=== PATIENT | male | born 1995 | race African-American/Black ===

== ENCOUNTER 2019-08-03 | Emergency (ER) | payer SELFPAY ==
--- NOTE | 2019-08-03 01:19 | ER ---
Nurse's Notes [facility] Name: Choco Gaines Age: 24 yrs Sex: Male : 1995 Arrival Date: 08/03/2019 Time: 00:26 Bed 8 Private MD: Diagnosis: Lateral epicondylitis, left elbow Presentation: 08/03 00:30 Presenting complaint: Patient states: About a day ago after work I started having jb4 severe pain in my left elbow. 00:30 Transition of care: patient was not received from another setting of care. Onset of jb4 symptoms was August 03, 2019. Risk Assessment: Do you want to hurt yourself or someone else? Patient reports no desire to harm self or others. Initial Sepsis Screen: Does the patient meet any 2 criteria? No. Patient's initial sepsis screen is negative. Does the patient have a suspected source of infection? No. Patient's initial sepsis screen is negative. Care prior to arrival: None. 00:30 Method Of Arrival: Ambulatory jb4 00:30 Acuity: ROX 5 jb4 Historical: - Allergies: 00:30 No Known Allergies; jb4 - Home Meds: 00:30 None [Active]; jb4 - PMHx: 00:30 None; jb4 - PSHx: 00:30 None; jb4 - Immunization history:: Adult Immunizations. - Coronavirus screen:: The patient has NOT traveled to [place] in the past 14 days. Proceed with normal triage process as indicated. The patient has NOT had contact with known/suspected case of Coronavirus? Proceed with normal triage procedures. - Family history:: not pertinent. - Social history:: Smoking status: unknown. - Hospitalizations: : No recent hospitalization is reported. - Ebola Screening: : No symptoms or risks identified at this time. Screenin:00 Abuse screen: Denies threats or abuse. Nutritional screening: No deficits noted. jb4 Tuberculosis screening: No symptoms or risk factors identified. Fall Risk None identified. Assessment: 01:00 General: Appears in no apparent distress. uncomfortable, Behavior is calm, cooperative, jb4 appropriate for age. Pain: Complains of pain in left elbow Pain does not radiate. Pain currently is 8 out of 10 on a pain scale. Quality of pain is described as throbbing. Neuro: Level of Consciousness is awake, alert, obeys commands, Oriented to person, place, time, situation. Cardiovascular: Patient's skin is warm and dry. Respiratory: Airway is patent Respiratory effort is even, unlabored, Respiratory pattern is regular, symmetrical. GI: No signs and/or symptoms were reported involving the gastrointestinal system. : No signs and/or symptoms were reported regarding the genitourinary system. EENT: No signs and/or symptoms were reported regarding the EENT system. Derm: Skin is intact, Skin is pink, warm \T\ dry. Musculoskeletal: Circulation, motion, and sensation intact. Range of motion: intact in all extremities. Vital Signs: 00:30 BP 150 / 94; Pulse 90; Resp 16; Temp 98.0(O); Pulse Ox 98% on R/A; Weight 107.95 kg jb4 (R); Height 6 ft. 0 in. (182.88 cm) (R); Pain 8/10; 00:30 Body Mass Index 32.28 (107.95 kg, 182.88 cm) jb4 ED Course: 00:26 Patient arrived in ED. cl3 00:29 Mu Mckeon MD is Attending Physician. rn 00:30 Arm band placed on right wrist. jb4 00:55 Jarrod Barajas, RN is Primary Nurse. jb4 00:55 Triage completed. jb4 01:00 Patient has correct armband on for positive identification. Bed in low position. Call jb4 light in reach. Side rails up X 1. Pulse ox on. NIBP on. 01:00 No provider procedures requiring assistance completed. Patient did not have IV access jb4 during this emergency room visit. Administered Medications: No medications were administered Outcome: 00:49 Discharge ordered by . rn 01:00 Discharged to home ambulatory, with family. jb4 01:00 Condition: stable 01:00 Discharge instructions given to patient, family, Instructed on discharge instructions, follow up and referral plans. Demonstrated understanding of instructions, follow-up care. 01:03 Patient left the ED. jb4 Signatures: Mu Mckeon MD MD rn Bryson, James RN RN Arjun Chahal cl3
--- NOTE | 2019-08-03 01:20 | EDPHYS ---
Physician Documentation [facility] Name: Choco Gaines Age: 24 yrs Sex: Male : 1995 Arrival Date: 08/03/2019 Time: 00:26 Bed 8 Private MD: ED Physician Mu Mckeon HPI: 08/03 00:46 This 24 yrs old Black Male presents to ER via Unassigned with complaints of Elbow rn Injury. 00:46 The patient or guardian complains of pain, that is acute. The complaints affect the rn left elbow. Onset: The symptoms/episode began/occurred yesterday. Modifying factors: The symptoms are alleviated by remaining still, the symptoms are aggravated by movement, lifting weight, bending arm. Severity of symptoms: At their worst the symptoms were moderate, in the emergency department the symptoms are unchanged. The patient has not experienced similar symptoms in the past. 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 Reports pain lateral elbow, not bone, worse with movement and lifting. . Historical: - Allergies: 00:30 No Known Allergies; jb4 - Home Meds: 00:30 None [Active]; jb4 - PMHx: 00:30 None; jb4 - PSHx: 00:30 None; jb4 - Immunization history:: Adult Immunizations. - Coronavirus screen:: The patient has NOT traveled to [place] in the past 14 days. Proceed with normal triage process as indicated. The patient has NOT had contact with known/suspected case of Coronavirus? Proceed with normal triage procedures. - Family history:: not pertinent. - Social history:: Smoking status: unknown. - Hospitalizations: : No recent hospitalization is reported. - Ebola Screening: : No symptoms or risks identified at this time. ROS: 00:46 Constitutional: Negative for fever, chills, and weight loss, Neck: Negative for injury, rn pain, and swelling, Cardiovascular: Negative for chest pain, palpitations, and edema, Respiratory: Negative for shortness of breath, cough, wheezing, and pleuritic chest pain, Back: Negative for injury and pain, MS/Extremity: + left elbow pain Skin: Negative for injury, rash, and discoloration, Neuro: Negative for headache, weakness, numbness, tingling, and seizure. Exam: 00:46 Constitutional: This is a well developed, well nourished patient who is awake, alert, rn and in no acute distress. Ambulatory to room without assistance. MS/ Extremity: Pulses equal, no cyanosis. Neurovascular intact. + tenderness at lateral condyle left elbow, no bony tenderness, reproducible pain with flexion and rotation. No swelling or deformity. Vital Signs: 00:30 BP 150 / 94; Pulse 90; Resp 16; Temp 98.0(O); Pulse Ox 98% on R/A; Weight 107.95 kg jb4 (R); Height 6 ft. 0 in. (182.88 cm) (R); Pain 8/10; 00:30 Body Mass Index 32.28 (107.95 kg, 182.88 cm) jb4 MDM: 00:29 Patient medically screened. rn 00:46 Differential diagnosis: tendonitis. Data reviewed: vital signs, nurses notes, and as a rn result, I will discharge patient. Counseling: I had a detailed discussion with the patient and/or guardian regarding: the historical points, exam findings, and any diagnostic results supporting the discharge/admit diagnosis, the need for outpatient follow up, to return to the emergency department if symptoms worsen or persist or if there are any questions or concerns that arise at home. Special discussion: I discussed with the patient/guardian in detail that at this point there is no indication for admission to the hospital. It is understood, however, that if the symptoms persist or worsen the patient needs to return immediately for re-evaluation. Further emergent ED testing is not indicated at this point in time. I discussed with the patient/guardian in detail the need to arrange with the PCP or specialist further outpatient testing, MRI. ED course: Recommend rest, ice, compression sleeves. . Administered Medications: No medications were administered Disposition: 08/03/19 00:49 Discharged to Home. Impression: Lateral epicondylitis, left elbow. - Condition is Stable. - Discharge Instructions: Tennis Elbow, Tendinitis. - Medication Reconciliation Form, Thank You Letter, Antibiotic Education, Prescription Opioid Use, Work release form form. - Follow up: Private Physician; When: As needed; Reason: Recheck today's complaints, Re-evaluation by your physician. - Problem is new. - Symptoms are unchanged. Signatures: Mckeon, Mu, MD MD rn Karl, Ajrrod, RN RN jb4 Corrections: (The following items were deleted from the chart) 01:03 00:49 08/03/2019 00:49 Discharged to Home. Impression: Lateral epicondylitis, left jb4 elbow. Condition is Stable. Forms are Medication Reconciliation Form, Thank You Letter, Antibiotic Education, Prescription Opioid Use. Follow up: Private Physician; When: As needed; Reason: Recheck today's complaints, Re-evaluation by your physician. Problem is new. Symptoms are unchanged. rn
== END 2019-08-03 01:03 | disposition home or self-care (01) ==
DX: M77.12 Lateral epicondylitis, left elbow (principal)
CPT/HCPCS: 99283

== ENCOUNTER 2023-05-05 16:44 | Emergency (ER) | payer SELFPAY ==
--- OUTSIDE RECORDS SUMMARY | 2023-05-05 16:46 | XMS REPORT | Continuity of Care Document ---
:1995 Author Organization [facility] t Address [address] [place] [address] [place] [id number] Care Team Providers Name Role Phone CHRETIEN_F Attending Clinician Unavailable CHRETIEN_F Admitting Clinician Unavailable Payers Payer Name Policy Type Policy Number Effective Date Expiration Date S ource Problems This patient has no known problems. Allergies, Adverse Reactions, Alerts This patient has no known allergies or adverse reactions. Medications This patient has no known medications. Procedures This patient has no known procedures. Encounters Start End Encounter Admission Attending Care Care Encounter Source Date/Time Date/Time Type Type Clinicians Facility Department ID 2021-11-19 2021-11-19 Outpatient CHRETIEN_F [facility] [id number] 11:27:00 11:27:00 [id number] 2021-11-12 2021-11-12 Outpatient CHRETIEN_F [facility] [id number] 04:12:00 04:12:00 [id number] Results This patient has no known results.
--- NOTE | 2023-05-05 17:45 | EDPHYS ---
Physician Documentation [facility] Name: Choco Gaines Age: 28 yrs Sex: Male : 1995 Arrival Date: 05/05/2023 Time: 16:44 Bed DIS1 Private MD: ED Physician Seth Weeks HPI: 05/05 16:58 This 28 yrs old Black Male presents to ER via Unassigned with complaints of Flu kb Symptoms. 16:59 Patient is a 28-year-old male with no medical history who presents for cough, kb congestion, general malaise that started 1 week ago. States his daughters have also been sick with fever. Historical: - Allergies: 17:00 No Known Allergies; aa5 - PMHx: 17:00 None; aa5 - PSHx: 17:00 None; aa5 - Immunization history:: Adult Immunizations unknown. - Social history:: Smoking status: Patient reports the use of cigarette tobacco products. ROS: 16:59 Abdomen/GI: Negative for abdominal pain, nausea, vomiting, diarrhea, and constipation, kb 16:59 Constitutional: Positive for malaise, 16:59 ENT: Positive for sinus congestion, 16:59 Respiratory: Positive for cough, 16:59 All other systems are negative, Exam: 16:59 Constitutional: This is a well developed, well nourished patient who is awake, alert, kb and in no acute distress. Head/Face: Normocephalic, atraumatic. ENT: Moist Mucous membranes Cardiovascular: Regular rate Respiratory: Respirations even and unlabored. No increased work of breathing. Talking in full sentences Skin: Warm, dry with normal turgor. Normal color. MS/ Extremity: Pulses equal, no cyanosis. Neurovascular intact. Full, normal range of motion. Neuro: Awake and alert, GCS 15, oriented to person, place, time, and situation. Moves all extremities. Normal gait. Vital Signs: 16:59 BP 143 / 94; Pulse 109; Resp 20 S; Temp 99.2(TE); Pulse Ox 99% on R/A; Weight 111.13 kg aa5 (M); Height 6 ft. 0 in. (R); 16:59 Body Mass Index 33.23 (111.13 kg, 182.88 cm) aa5 MDM: 16:52 Patient medically screened. kb 16:59 Differential Diagnosis: Other flu, covid, uri. Data reviewed: vital signs, nurses notes.kb 17:43 Counseling: I had a detailed discussion with the patient and/or guardian regarding the kb historical points, exam findings, and any diagnostic results supporting the discharge/admit diagnosis, lab results, the need for outpatient follow up, a family practitioner, to return to the emergency department if symptoms worsen or persist or if there are any questions or concerns that arise at home. 05/05 16:58 Order name: Flu; Complete Time: 17:43 kb 05/05 16:58 Order name: SARS-COV-2 RT PCR; Complete Time: 17:52 kb Administered Medications: No medications were administered Disposition Summary: 05/05/23 17:44 Discharge Ordered Notes: Location: Home kb Condition: Stable kb Diagnosis - Influenza due to identified novel influenza A virus kb Followup: kb - With: Emergency Department - When: As needed - Reason: Worsening of condition Followup: kb - With: Private Physician - When: 2 - 3 days - Reason: Recheck today's complaints, Continuance of care, Re-evaluation by your physician Discharge Instructions: - Discharge Summary Sheet kb - Influenza, Adult, [id number] kb Forms: - Work release form kb - Medication Reconciliation Form kb - Thank You Letter kb - Antibiotic Education kb - Prescription Opioid Use kb - Patient Portal Instructions kb - Leadership Thank You Letter kb Signatures: Dispatcher [employer] Soo Will, SHIPWRIGHT SUPERVISOR-C EMERY-Magdalene Olivares, RN RN aa5
--- NOTE | 2023-05-05 17:45 | ER ---
Nurse's Notes [facility] Name: Choco Gaines Age: 28 yrs Sex: Male : 1995 Arrival Date: 05/05/2023 Time: 16:44 Bed DIS1 Private MD: Diagnosis: Influenza due to identified novel influenza A virus Presentation: 05/05 16:59 Chief complaint: Patient states: cough and congestion x 1 week ago. Pt denies fever. aa5 16:59 Coronavirus screen: congestion, cough unrelated to allergies. Ebola Screen: Patient aa5 denies travel to an Ebola-affected area in the 21 days before illness onset. Initial Sepsis Screen: Does the patient meet any 2 criteria? HR > 90 bpm. Does the patient have a suspected source of infection? No. Patient's initial sepsis screen is negative. Risk Assessment: Do you want to hurt yourself or someone else? Patient reports no desire to harm self or others. Onset of symptoms was April 2023. 16:59 Method Of Arrival: Ambulatory aa5 16:59 Acuity: ROX 4 aa5 Triage Assessment: 17:40 General: Appears in no apparent distress. Behavior is calm, cooperative. iw Historical: - Allergies: 17:00 No Known Allergies; aa5 - PMHx: 17:00 None; aa5 - PSHx: 17:00 None; aa5 - Immunization history:: Adult Immunizations unknown. - Social history:: Smoking status: Patient reports the use of cigarette tobacco products. Screenin:50 [facility] ED Fall Risk Assessment (Adult) Score/Fall Risk Level 0 - 2 = Low Risk. Abuse iw screen: Denies threats or abuse. Denies injuries from another. Nutritional screening: No deficits noted. Tuberculosis screening: No symptoms or risk factors identified. Assessment: 17:45 General: Appears in no apparent distress. Behavior is calm, cooperative. Pain: Denies iw pain. Neuro: Level of Consciousness is awake, alert, obeys commands, Oriented to person, place, time, situation. Respiratory: Respiratory effort is Respiratory pattern is regular, symmetrical. Vital Signs: 16:59 BP 143 / 94; Pulse 109; Resp 20 S; Temp 99.2(TE); Pulse Ox 99% on R/A; Weight 111.13 kg aa5 (M); Height 6 ft. 0 in. (R); 16:59 Body Mass Index 33.23 (111.13 kg, 182.88 cm) aa5 ED Course: 16:47 Patient arrived in ED. mg5 16:52 Soo Blanco FNP-C is [facility]. kb 16:52 Seth Weeks MD is Attending Physician. kb 16:59 Arm band placed on. aa5 17:00 Triage completed. aa5 17:45 Patient has correct armband on for positive identification. Provided Education on: . iw 17:52 Katia Gaines, RN is Primary Nurse. iw 17:52 No provider procedures requiring assistance completed. Patient did not have IV access iw during this emergency room visit. Administered Medications: No medications were administered Medication: 17:52 VIS not applicable for this client. iw Outcome: 17:44 Discharge ordered by . kb 17:53 Discharged to home ambulatory, iw 17:53 Condition: good 17:53 Discharge instructions given to patient, Instructed on discharge instructions, follow up and referral plans. Demonstrated understanding of instructions, follow-up care, 17:54 Patient left the ED. iw Signatures: Soo Blanco FNP-C FNP-Katia Laws, RN RN Magdalene Orr, RN RN Gita Fortune mg5
[2023-05-05 18:16] VITALS: BP 143/94; TEMP 99.2; O2SAT 99
== END 2023-05-05 17:54 | disposition home or self-care (01) ==
LOC: ER 16:44
DX: J10.1 Influenza due to other identified influenza virus with other respiratory manifestations (principal); Z11.52 Encounter for screening for COVID-19
CPT/HCPCS: 87635; 87804; 99282

== ENCOUNTER → 2023-09-02 | Emergency (ER) | payer SELFPAY ==
--- OUTSIDE RECORDS SUMMARY | 2023-09-02 06:53 | XMS REPORT | Continuity of Care Document ---
Author Name Unknown Address [address] [place] [address] [place] [address] thconnect Address [address] [facility] [address] [place] [address] Care Team Providers Care Bag Adjuster Name Role Phone CHRETIEN_F Attending Clinician Unavailable CHRETIEN_F Admitting Clinician Unavailable Payers Payer Name Policy Type Policy Number Effective Date Expirati on Date Source Encounters Start Date/Time End Date/Time Encounter Type Admission Type Attending Clinicians Care Facility Care Department Encounter ID Source 2021-11-19 11:27:00 2021-11-19 11:27:00 [address] CHRETIEN_F [id number] 2021-11-12 04:12:00 2021-11-12 04:12:[address] [facility]RE[facility]_F [id number]
--- NOTE | 2023-09-02 07:23 | ER ---
Nurse's Notes [facility] Name: Choco Gaines Age: 28 yrs Sex: Male : 1995 Arrival Date: 09/02/2023 Time: 06:50 Bed 12 Private MD: Diagnosis: Localized swelling, mass and lump, head Presentation: 09/01 06:59 Chief complaint: Patient states: feels a small knot under right ear X 1 day. iw Coronavirus screen: At this time, the client does not indicate any symptoms associated with coronavirus-19. Ebola Screen: Patient negative for fever greater than or equal to 101.5 degrees Fahrenheit, and additional compatible Ebola Virus Disease symptoms Patient denies exposure to infectious person. Patient denies travel to an Ebola-affected area in the 21 days before illness onset. No symptoms or risks identified at this time. Initial Sepsis Screen: Does the patient meet any 2 criteria? No. Patient's initial sepsis screen is negative. Does the patient have a suspected source of infection? No. Patient's initial sepsis screen is negative. Risk Assessment: Do you want to hurt yourself or someone else? Patient reports no desire to harm self or others. Onset of symptoms was September 01, 2023. 06:59 Method Of Arrival: Ambulatory iw 06:59 Acuity: ROX 4 iw Historical: - Allergies: 07:00 No Known Allergies; iw - Home Meds: 07:00 None [Active]; iw - PMHx: 07:00 None; iw - PSHx: 07:00 None; iw - Immunization history:: Adult Immunizations. - Social history:: Smoking status: Patient reports the use of cigarette tobacco products. - Family history:: not pertinent. - Hospitalizations: : No recent hospitalization is reported. Screenin:50 [facility] ED Fall Risk Assessment (Adult) History of falling in the last 3 months, kb3 including since admission No falls in past 3 months (0 pts) Confusion or Disorientation No (0 pts) Intoxicated or Sedated No (0 pts) Impaired Gait No (0 pts) Mobility Assist Device Used No (0 pt) Altered Elimination No (0 pt) Score/Fall Risk Level 0 - 2 = Low Risk Oriented to surroundings. Abuse screen: Denies threats or abuse. Denies injuries from another. Nutritional screening: No deficits noted. Tuberculosis screening: No symptoms or risk factors identified. Assessment: 07:59 General: Appears in no apparent distress. comfortable, Behavior is calm, cooperative. kb3 Pain: Complains of pain in right ear lobe and right mastoid area Pain does not radiate. Pain currently is 7 out of 10 on a pain scale. Quality of pain is described as burning, pressure, Pain began Is continuous. EENT: Quarter-size area of redness and swelling behind the right ear lobe, extending into the right ear lobe.. Derm: Abscess located on right ear lobe and right mastoid area is quarter sized, has no drainage, is hot to touch, is red. Vital Signs: 07:00 BP 150 / 98; Pulse 94; Resp 16; Temp 97; Pulse Ox 95% on R/A; Weight 108.86 kg; Height iw 6 ft. 0 in. ; 07:50 BP 140 / 78; Pulse 78; Resp 18; Temp 97.9; Pulse Ox 99% ; Pain 7/10; kb3 07:00 Body Mass Index 32.55 (108.86 kg, 182.88 cm) iw 07:50 Pain Scale: Adult kb3 ED Course: 06:54 Patient arrived in ED. jj6 07:00 Triage completed. iw 07:00 Arm band placed on. iw 07:02 Mu Mckeon MD is Attending Physician. rn 07:50 Patient has correct armband on for positive identification. Provided Education on: kb3 Wound care, warm compresses, antibiotics, OTC pain relief, follow up. 07:50 No provider procedures requiring assistance completed. Patient did not have IV access kb3 during this emergency room visit. Administered Medications: No medications were administered Medication: 07:50 VIS not applicable for this client. kb3 Outcome: 07:22 Discharge ordered by . rn 08:00 Discharged to home ambulatory, kb3 08:00 Condition: stable kb3 08:00 Discharge instructions given to patient, Instructed on discharge instructions, follow up and referral plans. medication usage, Demonstrated understanding of instructions, follow-up care, medications, Prescriptions given X 1, 08:04 Patient left the ED. kb3 Signatures: Katia Gaines RN JORGE L iw Mu Mckeon MD MD rn Jeffries, Jennifer 6 Flavia Desai RN RN kb3
--- NOTE | 2023-09-02 07:23 | EDPHYS ---
Physician Documentation [facility] Name: Choco Gaines Age: 28 yrs Sex: Male : 1995 Arrival Date: 09/02/2023 Time: 06:50 Bed 12 Private MD: ED Physician Mu Mckeon HPI: 09/01 07:18 This 28 yrs old Black Male presents to ER via Ambulatory with complaints of Ear Pain, rn face pain. 07:19 Patient reports had ear pain last week, now feels focal swelling underneath right rn earlobe. No pain. No fever. No difficulty with hearing. No trauma. Patient reports messes with that right ear frequently, constantly tugging.. Onset: The symptoms/episode began/occurred yesterday. Severity of symptoms: At their worst the symptoms were mild in the emergency department the symptoms are unchanged. The patient has not experienced similar symptoms in the past. The patient has not recently seen a physician. Historical: - Allergies: 07:00 No Known Allergies; iw - Home Meds: 07:00 None [Active]; iw - PMHx: 07:00 None; iw - PSHx: 07:00 None; iw - Immunization history:: Adult Immunizations. - Social history:: Smoking status: Patient reports the use of cigarette tobacco products. - Family history:: not pertinent. - Hospitalizations: : No recent hospitalization is reported. ROS: 07:19 Constitutional: Negative for fever, chills, and weight loss, Eyes: Negative for injury, rn pain, redness, and discharge, Cardiovascular: Negative for chest pain, palpitations, and edema, Respiratory: Negative for shortness of breath, cough, wheezing, and pleuritic chest pain, Neuro: Negative for headache, weakness, numbness, tingling, and seizure, Exam: 07:19 Constitutional: This is a well developed, well nourished patient who is awake, alert, rn and in no acute distress. Head/Face: Normocephalic, atraumatic. ENT: Focal swelling, approximately 1 cm, underneath right earlobe. No fluctuance. No tenderness. Some breakdown of the skin overlying area. No head or pustule identified. Neck: Trachea midline, Supple, full range of motion without nuchal rigidity, or vertebral point tenderness. No Meningismus. Vital Signs: 07:00 BP 150 / 98; Pulse 94; Resp 16; Temp 97; Pulse Ox 95% on R/A; Weight 108.86 kg; Height iw 6 ft. 0 in. ; 07:50 BP 140 / 78; Pulse 78; Resp 18; Temp 97.9; Pulse Ox 99% ; Pain 7/10; kb3 07:00 Body Mass Index 32.55 (108.86 kg, 182.88 cm) iw 07:50 Pain Scale: Adult kb3 MDM: 07:02 Patient medically screened. rn 07:19 Differential Diagnosis Cellulitis, phlegmon, abscess, lymphadenopathy, lymphadenitis. rn Data reviewed: vital signs, nurses notes, and as a result, I will discharge patient. Counseling: I had a detailed discussion with the patient and/or guardian regarding the historical points, exam findings, and any diagnostic results supporting the discharge/admit diagnosis, the need for outpatient follow up, to return to the emergency department if symptoms worsen or persist or if there are any questions or concerns that arise at home. Special discussion: I discussed with the patient/guardian in detail that at this point there is no indication for admission to the hospital. It is understood, however, that if the symptoms persist or worsen the patient needs to return immediately for re-evaluation. Administered Medications: No medications were administered Disposition Summary: 09/02/23 07:22 Discharge Ordered Notes: Location: Home rn Problem: new rn Symptoms: have improved rn Condition: Stable rn Diagnosis - Localized swelling, mass and lump, head rn Followup: rn - With: Private Physician - When: As needed - Reason: Recheck today's complaints, Re-evaluation by your physician Discharge Instructions: - Discharge Summary Sheet rn Forms: - Medication Reconciliation Form rn - Thank You Letter rn - Antibiotic utilization review rn - Prescription Opioid Use rn - Patient Portal Instructions rn - Leadership Thank You Letter rn Prescriptions: - Clindamycin HCl 300 mg Oral Capsule - take 1 capsule ORAL route every 6 hours for 10 days; 40 capsule; Refills: 0, rn Product Selection Permitted Signatures: Katia Gaines RN RN iw Mu Mckeon MD MD rn
[2023-09-02 08:13] VITALS: BP 140/78; TEMP 97.9; O2SAT 99
== END ==
LOC: ER 06:50
DX: R22.9 Localized swelling, mass and lump, unspecified (principal)

== ENCOUNTER 2023-10-02 12:22 | Emergency (ER) | payer SELFPAY ==
--- OUTSIDE RECORDS SUMMARY | 2023-10-02 12:24 | XMS REPORT | Continuity of Care Document ---
Author Name Unknown Address [address] [place] [address] [place] [address] thconnect Address [address] [facility] [address] [place] [address] Care Team Providers Care Filter Tender Name Role Phone CHRETIEN_F Attending Clinician Unavailable CHRETIEN_F Admitting Clinician Unavailable Payers Payer Name Policy Type Policy Number Effective Date Expirati on Date Source Encounters Start Date/Time End Date/Time Encounter Type Admission Type Attending Clinicians Care Facility Care Department Encounter ID Source 2021-11-19 11:27:00 2021-11-19 11:27:00 Outpatient CHRETIEN_F [facility] [id number] [place] [facility] 2021-11-12 04:12:00 2021-11-12 04:12:00 Outpatient CHRETIEN_F [facility] [id number] [facility]
[2023-10-02] MEDS ORDERED: FLUORESCEIN SODIUM 1 MG/WRAP ONE (13:35)
[2023-10-02] MEDS ORDERED: TETRACAINE HCL 0.5% 4ML OPTH ONE ×2 (13:35→13:42)
--- NOTE | 2023-10-02 13:48 | ER ---
Nurse's Notes [facility] Name: Choco Gaines Age: 28 yrs Sex: Male : 1995 Arrival Date: 10/02/2023 Time: 12:22 Bed IW1 Private MD: Diagnosis: Injury of conjunctiva and corneal abrasion without foreign body, right eye Presentation: 10/01 12:56 Chief complaint: Patient states: right eye irritation and redness that began Thursday. aa5 Denies eye drainage. Coronavirus screen: At this time, the client does not indicate any symptoms associated with coronavirus-19. Ebola Screen: Patient denies travel to an Ebola-affected area in the 21 days before illness onset. Initial Sepsis Screen: Does the patient meet any 2 criteria? No. Patient's initial sepsis screen is negative. Does the patient have a suspected source of infection? No. Patient's initial sepsis screen is negative. Risk Assessment: Do you want to hurt yourself or someone else? Patient reports no desire to harm self or others. Onset of symptoms was September 2023. 12:56 Acuity: ROX 4 aa5 12:56 Method Of Arrival: Ambulatory aa5 Historical: - Allergies: 12:57 No Known Allergies; aa5 - PMHx: 12:57 None; aa5 - PSHx: 12:57 None; aa5 - Immunization history:: Adult Immunizations unknown. - Infectious Disease History:: Denies. - Social history:: Smoking status: Patient reports the use of cigarette tobacco products. Vital Signs: 12:56 BP 153 / 93; Pulse 79; Resp 18 S; Temp 98.2(TE); Pulse Ox 99% on R/A; Weight 108.86 kg aa5 (R); Height 6 ft. 0 in. (R); 12:56 Body Mass Index 32.55 (108.86 kg, 182.88 cm) aa5 ED Course: 12:25 Patient arrived in ED. mg5 12:56 Arm band placed on. aa5 12:57 Triage completed. aa5 13:00 [facility] Bl[facility]C [facility] kb 13:00 Michael Hilton MD is Attending Physician. kb 13:37 Assist provider with eye exam of right eye. using fluorescein stain, Performed by aa5 Soo BRICENO Patient tolerated well. Administered Medications: 13:37 Drug: Tetracaine Ophthalmic Drops 0.5 % 1 drops Ophthalmic once Route: Ophthalmic; aa5 Site: right eye; 13:43 Drug: Tetracaine Ophthalmic Drops 0.5 % 1 drops Ophthalmic once {Note: given by DESULFURIZER MACHINE for aa5 eye pressure testing using Manohar-pen.} Route: Ophthalmic; Site: right eye; Outcome: 13:47 Discharge ordered by . kb 14:00 Patient left the ED. aa5 Signatures: Soo Blanco FNP-C FNP-Ckb Calderon, Audri, RN RN aa5 Gita Collins 5
--- NOTE | 2023-10-02 13:48 | EDPHYS ---
Physician Documentation [facility] Name: Choco Gaines Age: 28 yrs Sex: Male : 1995 Arrival Date: 10/02/2023 Time: 12:22 Bed IW1 Private MD: ED Physician Michael Hilton HPI: 10/01 13:34 This 28 yrs old Black Male presents to ER via Ambulatory with complaints of Eye Problem.kb 13:34 Pt is a 28 year old male who presents for redness and irritation to right eye for 3 kb days. Denies pain, drainage, visual deficits. . Historical: - Allergies: 12:57 No Known Allergies; aa5 - PMHx: 12:57 None; aa5 - PSHx: 12:57 None; aa5 - Immunization history:: Adult Immunizations unknown. - Infectious Disease History:: Denies. - Social history:: Smoking status: Patient reports the use of cigarette tobacco products. ROS: 13:34 Constitutional: As per HPI kb Exam: 13:34 Constitutional: This is a well developed, well nourished patient who is awake, alert, kb and in no acute distress. Head/Face: Normocephalic, atraumatic. ENT: Moist Mucous membranes Cardiovascular: Regular rate Respiratory: Respirations even and unlabored. No increased work of breathing. Talking in full sentences Skin: Warm, dry with normal turgor. Normal color. MS/ Extremity: Pulses equal, no cyanosis. Neurovascular intact. Full, normal range of motion. Neuro: Awake and alert, GCS 15, oriented to person, place, time, and situation. Moves all extremities. Normal gait. 13:34 Eyes: Periorbital structures: appear normal, Pupils: equal, round, and reactive to light and accomodation, Extraocular movements: intact throughout, Conjunctiva: injected, in the right eye, Corneas: abrasion, that is small, on the right, at 9 o'clock, 13:46 Eyes: Intraocular pressure: right eye = 18mmHg, kb Vital Signs: 12:56 BP 153 / 93; Pulse 79; Resp 18 S; Temp 98.2(TE); Pulse Ox 99% on R/A; Weight 108.86 kg aa5 (R); Height 6 ft. 0 in. (R); 12:56 Body Mass Index 32.55 (108.86 kg, 182.88 cm) aa5 MDM: 13:01 Patient medically screened. kb 13:46 Differential diagnosis: Corneal abrasion of Corneal ulcer of Foreign body in Acute kb iritis of Acute glaucoma in Data reviewed: vital signs, nurses notes. 13:47 Counseling: I had a detailed discussion with the patient and/or guardian regarding the kb historical points, exam findings, and any diagnostic results supporting the discharge/admit diagnosis, the need for outpatient follow up, an opthalmologist, to return to the emergency department if symptoms worsen or persist or if there are any questions or concerns that arise at home. 10/01 13:32 Order name: Eye Tray; Complete Time: 13:37 kb 10/01 13:32 Order name: Fluoresene Opth strip; Complete Time: 13:37 kb Administered Medications: 13:37 Drug: Tetracaine Ophthalmic Drops 0.5 % 1 drops Ophthalmic once Route: Ophthalmic; aa5 Site: right eye; 13:43 Drug: Tetracaine Ophthalmic Drops 0.5 % 1 drops Ophthalmic once {Note: given by UNINDENTURED APPRENTICE for aa5 eye pressure testing using Manohar-pen.} Route: Ophthalmic; Site: right eye; Disposition Summary: 10/02/23 13:47 Discharge Ordered Notes: Location: Home kb Condition: Stable kb Diagnosis - Injury of conjunctiva and corneal abrasion without foreign body, right eye kb Followup: kb - With: Emergency Department - When: As needed - Reason: Worsening of condition Followup: kb - With: Private Physician - When: 2 - 3 days - Reason: Recheck today's complaints, Continuance of care, Re-evaluation by your physician Discharge Instructions: - Discharge Summary Sheet kb - Corneal Abrasion, [id number] kb Forms: - Medication Reconciliation Form kb - Antibiotic Education kb - Prescription Opioid Use kb - Patient Portal Instructions kb - Leadership Thank You Letter Prescriptions: - Vigamox 0.5 % Ophthalmic Drops - instill 1 drop OPHTHALMIC route every 8 hours for 7 days; 5 milliliter; kb Refills: 0, Product Selection Permitted Signatures: Soo Blanco FNP-C FNP-Magdalene Olivares, RN RN aa5
[2023-10-02 14:39] VITALS: BP 153/93; TEMP 98.2; O2SAT 99
== END 2023-10-02 14:00 | disposition home or self-care (01) ==
LOC: ER 12:22
DX: S05.01XA Injury of conjunctiva and corneal abrasion without foreign body, right eye, initial encounter (principal)

== ENCOUNTER 2024-03-08 16:39 | Emergency (ER) | payer SELFPAY ==
--- OUTSIDE RECORDS SUMMARY | 2024-03-08 16:43 | XMS REPORT | Continuity of Care Document ---
Author Name Unknown Address [address] [place] [address] [place] [address] thconnect Address [address] [facility] [address] [place] [address] Care Team Providers Care Angle Roll Operator Name Role Phone CHRETIEN_F Attending Clinician Unavailable CHRETIEN_F Admitting Clinician Unavailable Payers Payer Name Policy Type Policy Number Effective Date Expirati on Date Source Encounters Start Date/Time End Date/Time Encounter Type Admission Type Attending Clinicians Care Facility Care Department Encounter ID Source 2021-11-19 11:27:00 2021-11-19 11:27:00 Outpatient CHRETIEN_F [facility] [id number] [place] [facility] 2021-11-12 04:12:00 2021-11-12 04:12:00 [address] CHRETIEN_F [facility] [id number] [place] [facility]
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
[2024-03-08 18:11] VITALS: BP 108/95; TEMP 96.9; O2SAT 96
== END 2024-03-08 17:21 | disposition home or self-care (01) ==
LOC: ER 16:39
DX: Z04.1 Encounter for examination and observation following transport accident (principal); V49.40XA Driver injured in collision with unspecified motor vehicles in traffic accident, initial encounter
CPT/HCPCS: 99281